=== PATIENT | male | born 1980 | race Caucasian/White ===

== ENCOUNTER 2017-02-12 09:14 | Emergency (ER) | payer SELFPAY ==
--- NOTE | 2017-02-21 18:05 | ER ---
ADMIT: 02/12/2017 RM/LOC: ER [facility] MR#: [id number] [address] [id number] [address] [place] [address] Emergency Room Report SEX: M AGE: 36 : 1980 DATE: 02/12/2017 ADDENDUM: CHIEF COMPLAINT: Forearm pain. HISTORY OF PRESENT ILLNESS: This 36-year-old, who was playing basketball three days ago. He injured his hand and forearm at that time. He has swelling to his hand extending all the way up his forearm. He is tender mostly on soft-tissue, but tender with supination and pronation up into radial head location, also tender more on the ulnar side of his hand. X-rays were done. It is negative for any fracture. There is a questionable widening at that joint and the wrist on the ulnar side. I placed him in a sling, having him ice, use Motrin, Tylenol for pain and follow up with Orthopedic this week. CLINICAL IMPRESSION: Left forearm strain. ENA Wang / Frederick Yee MD / otilia JOB #: [id number] CC: Frederick Yee MD, Attending Physician Frederick Keller MD, Family Physician
== END 2017-02-12 11:19 | disposition home or self-care (01) ==
LOC: ER 09:14
DX: S56.912A Strain of unspecified muscles, fascia and tendons at forearm level, left arm, initial encounter (principal); X58.XXXA Exposure to other specified factors, initial encounter; Y93.67 Activity, basketball

== ENCOUNTER 2017-02-16 08:23 | Emergency (ER) | payer SELFPAY ==
--- NOTE | 2017-02-19 16:46 | ER ---
ADMIT: 02/16/2017 RM/LOC: ER [facility] MR#: [id number] [facility] [address] [place] [id number] [address] [place] [address] Emergency Room Report SEX: M AGE: 36 : 1980 CORRECTED: 02/17/2017 0636 NJV DATE: 02/16/2017 HISTORY OF PRESENT ILLNESS: The patient is a patient is a 36-year-old male, who presented to the emergency room a week ago for evaluation of his left arm injury. He said he was playing basketball and fell and had an injury to his hand. When he came here, x-rays were done, nothing was found to be broken. He was sent home with a sling, instructions to follow up with a doctor, but he never did and he presenting back to us stating that he needs medications for pain. Upon examination, he still has the sling in place. No swelling. He has good motion on his fingers. He says it hurts a little bit proximal to the elbow area and the muscle on top. CLINICAL IMPRESSION: Injury checkup, left arm contusion. His x-ray was reviewed, not repeated. He said he has not taken anything for the discomfort, no Tylenol nor Motrin since that time he was seen in the emergency room. He was advised to do Motrin 800 mg or 200 mg x4 pills and he says he lives in a assisted, so I went ahead and I wrote a note so he could get that provided and re-emphasized the need for him to follow up with the physician that we provided him at the time of discharge from the ER. The patient verbalized understanding. ENA Ga / Tyrese Schuler MD / otilia JOB #: [id number] CC: Tyrese Schuler MD, Attending Physician Lien Quinones MD, Family Physician CORRECTED: 02/17/2017 0636 NJV
== END 2017-02-16 09:34 | disposition home or self-care (01) ==
LOC: ER 08:23
DX: S50.12XA Contusion of left forearm, initial encounter (principal); F17.200 Nicotine dependence, unspecified, uncomplicated; W18.30XA Fall on same level, unspecified, initial encounter; Y93.67 Activity, basketball; Y92.830 Public park as the place of occurrence of the external cause